=== PATIENT | female | born 1995 | race Caucasian/White ===

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

== ENCOUNTER 2017-01-11 14:41 | Inpatient (IN) | payer MEDICAID, OTHER ==
[~2017-01-11] VITALS: Ht 149.9 cm; Wt 59.5 kg
[~2017-01-11 14:41] MED LIST changes: -ACET500C5 PO; -CEPH-443 PO; -NITR100C73 PO
[2017-01-11 15:04] VITALS: BP 137/84; PULSE 58; RESP 18; Ht 149.9 cm; Wt 59.5 kg
[2017-01-11] MEDS ORDERED: LACTATED RINGER'S 1,000 ML IV SCH (15:26)
[2017-01-11] MEDS ORDERED: AMPICILLIN 2 GM/NS (PMX) 100 ML IV ONE (15:30)
[2017-01-11] MEDS ORDERED: CARBOPROST 250 MCG INJ IM PRN (15:30)
[2017-01-11] MEDS ORDERED: OXYTOCIN 30 UNITS/LR 500 ML IV SCH ×2 (15:30)
[2017-01-11] MEDS ORDERED: LACTATED RINGER'S 1,000 ML IV PRN (15:30)
[2017-01-11] MEDS ORDERED: IBUPROFEN 600 MG TAB PO PRN (15:30)
[2017-01-11] MEDS ORDERED: MISOPROSTOL 200 MCG TAB PR PRN (15:30)
[2017-01-11] MEDS ORDERED: METHYLERGONOVINE 0.2 MG INJ IM PRN (15:30)
[2017-01-11] MEDS ORDERED: OXYTOCIN 30 UNITS/LR 500 ML IV PRN (15:30)
[2017-01-11] MEDS ORDERED: BUTORPHANOL 2 MG INJ IV PRN (15:30)
[2017-01-11] MEDS ORDERED: LIDOCAINE 1% (MPF) 30 ML INJ INJ PRN (15:30)
--- NOTE | 2017-01-11 16:01 | RADRPT ---
PROCEDURE: US OB. CLINICAL INDICATION: Size and dates TECHNIQUE: Multiple sonographic images of the pelvis and gravid uterus were obtained. The images were reviewed on a PACS workstation. COMPARISON: No prior studies are available for comparison. FINDINGS: There is a single viable intrauterine gestation. Cardiac activity is present with 136 beats per min stephen. There is a vertex presentation. The placenta is anterior. There is no evidence for an abruption or placenta previa. Measurements were made in order to determine age. The results are as follows: Head measurements were not obtained. AC =33.7 cm FL =7.4 cm Estimated gestational age of approximately 37 weeks and 6 days based on ultrasound measurements. Clinical age: 38 weeks and 1 day. The estimated date of delivery is 01/26/17, based on ultrasound measurements. The EFW = 3339 g, 57%, based on LMP age. RPTAT: AA IMPRESSION: Single viable intrauterine gestation of approximately 37 weeks and 6 days based on ultrasound measu rements. .Nilesh Dick MD, MD Date Time Electronically viewed and signed by .Nilesh Dick MD, on 01/11/2017 16:00 .S/
[2017-01-11 16:11] LABS: BASOPHILS % 0.5 % (0.0-2.0); EOSINOPHILS # 0.1 10^3/ul (0.0-0.5); EOSINOPHILS % 1.5 % (0.0-7.0); HEMATOCRIT 33.5 % (37.0-47.0); HEMOGLOBIN 10.6 g/dl (12.0-16.0); LYMPHOCYTES # 2.5 10^3/ul (0.8-2.9); MEAN CORPUSCULAR HEMOGLOBIN 26.8 pg (29.0-33.0); MEAN CORPUSCULAR HGB CONC 31.6 g/dl (32.0-37.0); MEAN CORPUSCULAR VOLUME 84.6 fl (72.0-104.0); MEAN PLATELET VOLUME 12.7 fl (7.4-10.4); MONOCYTE # 0.6 10^3/ul (0.3-0.9); NEUTROPHIL # 5.1 10^3/ul (1.6-7.5); NEUTROPHILS % 60.8 % (30.0-74.0); NUCLEATED RED BLOOD CELLS% 0.2 /100WBC (0.0-0.0); PLATELET COUNT 215 10^3/UL (140-415); RED BLOOD COUNT 3.96 10^6/ul (4.20-5.40); RED CELL DISTRIBUTION WIDTH 13.8 % (11.5-14.5); WHITE BLOOD COUNT 8.5 10^3/ul (4.8-10.8)
[2017-01-11 16:24] LABS: INR 0.84; PROTIME 11.5 Sec (12.2-14.2); PT RATIO 0.9
[2017-01-11 16:25] LABS: PARTIAL THROMBOPLASTIN TIME 26.7 Sec (25.0-35.0)
[2017-01-11] MEDS ORDERED: FENTAnyl 2MCG/ML-ROPIV 0.2% 100 ML ONE (16:34)
[2017-01-11] MEDS ORDERED: NALOXONE (0.4 MG/ML) INJ IV PRN ×2 (19:30)
[2017-01-11] MEDS ORDERED: FENTAnyl 2MCG/ML-ROPIV 0.2% 100 ML BAG EPI SCH (19:30)
[2017-01-11] MEDS ORDERED: AMPICILLIN 1 GM/NS (PMX) 50 ML IV SCH (19:30)
[2017-01-11] MEDS ORDERED: ACETAMINOPHEN 325 MG TAB PO PRN (20:30)
--- NOTE | 2017-01-11 20:37 | HP ---
Date/Time of Note Date/Time of Note DATE: 01/11/17 TIME: 20:35 OB - History Hx of Present Chief Complaint: contractions Estimated Due Date: Jan 23, 2017 : 2 Para: 1 Spontaneous : 0 Therapeutic : 0 Care: Good Care Ultrasounds: Normal mid trimester US Obstetrical Complications: None Medical Complications: None Past Family/Social History * Past Medical, Surgical, Family and Obstetric Histories reviewed from chart. GBS Status: Negative OB Admission Exam Vital Signs Vital Signs Vital Signs Date Time Temp Pulse Resp B/P Pulse Ox O2 Delivery O2 Flow Rate FiO2 01/11/17 15:04 98.4 58 18 137/84 Room Air Physical Exam HEENT: WNL Heart: Rhythm Normal Lungs: Clear, Equal Abdomen: WNL Extremities: Normal Reflexes: Normal Cervical Dilatation: 8cm Effacement: 75% Station: -1 Membranes: Intact Heart Rate: 130's Accelerations: Accelerations Present Decelerations: No Decelerations Varibility: Moderate Last 72 hours Lab Results CBC & BMP 01/11/17 15:30 OB Assessment/Plan Reason for admission: active labor Plan: Expectant Management BARBRA PHILIPPE MD Jan 11, 2017 20:37
--- NOTE | 2017-01-11 20:39 | LDN ---
Date/Time of Note Date/Time of Note DATE: 01/11/17 TIME: 20:37 Delivery Summary Weeks of Gestation 38 weeks Placenta Delivered: Spontaneously Meconium: none Episiotomy: No Perineal laceration: 1 Laceration repair: First degree laceration repaired with 3-0 chromic. Anesthesia type: Epidural Estimated blood loss: 200 Sponge & Needle done & correct: Yes All needle counts correct: Yes Any foreign bodies felt in the: No Problems: Infant Delivery Information Sex Sex: male Apgars 1 Minute: 8 5 Minute: 9 Suctioning Nose & mouth suctioned at rubi: Yes Delee suction performed: No Umbilical Cord Cord presentations: no nuchal cord Cord Blood was obtained: Yes Mother & Baby Disposition Disposition Mom & Baby to Maternity; Good: Yes BARBRA PHILIPPE MD Jan 11, 2017 20:39
[2017-01-11 21:29] LABS: BASOPHILS % 0.4 % (0.0-2.0); EOSINOPHILS % 0.2 % (0.0-7.0); HEMATOCRIT 32.9 % (37.0-47.0); HEMOGLOBIN 10.5 g/dl (12.0-16.0); LYMPHOCYTES # 1.5 10^3/ul (0.8-2.9); LYMPHOCYTES % 13.8 % (18.0-55.0); MEAN CORPUSCULAR HEMOGLOBIN 26.9 pg (29.0-33.0); MEAN CORPUSCULAR HGB CONC 31.9 g/dl (32.0-37.0); MEAN CORPUSCULAR VOLUME 84.4 fl (72.0-104.0); MEAN PLATELET VOLUME 12.5 fl (7.4-10.4); MONOCYTE # 0.4 10^3/ul (0.3-0.9); NEUTROPHILS % 80.9 % (30.0-74.0); PLATELET COUNT 200 10^3/UL (140-415); RED CELL DISTRIBUTION WIDTH 13.9 % (11.5-14.5); WHITE BLOOD COUNT 11.1 10^3/ul (4.8-10.8)
[2017-01-11 22:10] LABS: ALBUMIN 3.5 g/dl (3.3-4.9); ALBUMIN/GLOBULIN RATIO 0.97; BILIRUBIN,INDIRECT 0.2 mg/dl (0-1.1); BILIRUBIN,TOTAL 0.2 mg/dl (0.2-1.3); CALCIUM 8.9 mg/dl (8.4-10.2); CREATININE 0.61 mg/dl (0.44-1.00); POTASSIUM 4.1 mmol/L (3.5-5.1); TOTAL PROTEIN 7.1 g/dl (6.1-8.1); URIC ACID 6.1 mg/dl (3.1-7.9)
[2017-01-11 22:13] LABS: ADD UMIC YES; UR ASCORBIC ACID NEGATIVE (NEGATIVE); UR BILIRUBIN (Dip) NEGATIVE (NEGATIVE); UR BLOOD (Dip) 2+ mg/dL (NEGATIVE); UR CLARITY CLEAR (CLEAR); UR COLOR YELLOW (YELLOW); UR GLUCOSE (Dip) NEGATIVE (NEGATIVE); UR KETONES (Dip) 1+ mg/dL (NEGATIVE); UR LEUKOCYTE ESTERASE (Dip) NEGATIVE Leu/ul (NEGATIVE); UR NITRITE (Dip) NEGATIVE (NEGATIVE); UR RBC 138 /HPF (0-5); UR SPECIFIC GRAVITY (Dip) 1.018 (1.003-1.030); UR TOTAL PROTEIN (Dip) 1+ mg/dl (NEGATIVE); UR UROBILINOGEN (Dip) NEGATIVE (NEGATIVE)
[2017-01-11] MEDS ORDERED: CA GLUCONATE (GM) 10% 10ML INJ IV PRN (22:30)
[2017-01-11] MEDS ORDERED: MAGNESIUM SULFATE 4 GM/100 ML 100 ML IV SCH (22:30)
[2017-01-11] MEDS: MAGNESIUM SULFATE 20 GM/500 ML 500 ML IV SCH (23:18)
[2017-01-11 23:30] VITALS: BP 141/80; PULSE 67; RESP 18
[2017-01-12] VITALS (18 sets, daily range): BP systolic 110–132; BP diastolic 58–84; PULSE 59–80; RESP 15–20
[2017-01-12] MEDS ORDERED: ACETAMINOPHEN 325 MG TAB PO PRN (00:30)
[2017-01-12] MEDS ORDERED: OXYTOCIN 30 UNITS/LR 500 ML IV PRN (00:30)
[2017-01-12] MEDS ORDERED: CARBOPROST 250 MCG INJ IM PRN (00:30)
[2017-01-12] MEDS ORDERED: HYDROCODONE/APAP (5/325) TAB PO PRN (00:30)
[2017-01-12] MEDS ORDERED: LANOLIN 7 GM TUBE TOP PRN (00:30)
[2017-01-12] MEDS ORDERED: DIBUCAINE 1% 30 GM OINT PR PRN (00:30)
[2017-01-12] MEDS ORDERED: MISOPROSTOL 200 MCG TAB PR PRN (00:30)
[2017-01-12] MEDS ORDERED: WITCH HAZEL/GLYCERIN PAD PR PRN (00:30)
[2017-01-12] MEDS ORDERED: BENZOCAINE 20% 56 ML SPRAY TOP PRN (00:30)
[2017-01-12] MEDS: IBUPROFEN 600 MG TAB PO SCH ×4 (00:51→18:00)
[2017-01-12] MEDS: LACTATED RINGER'S 1,000 ML IV* SCH ×3 (01:17→12:51)
[2017-01-12 07:20] LABS: BASOPHIL # 0.1 10^3/ul (0.0-0.1); BASOPHILS % 0.6 % (0.0-2.0); EOSINOPHILS # 0.1 10^3/ul (0.0-0.5); EOSINOPHILS % 0.7 % (0.0-7.0); HEMATOCRIT 30.7 % (37.0-47.0); HEMOGLOBIN 9.8 g/dl (12.0-16.0); MEAN CORPUSCULAR HGB CONC 31.9 g/dl (32.0-37.0); MEAN CORPUSCULAR VOLUME 84.6 fl (72.0-104.0); MONOCYTE # 0.9 10^3/ul (0.3-0.9); MONOCYTES % 7.5 % (0.0-13.0); NEUTROPHIL # 9.4 10^3/ul (1.6-7.5); NEUTROPHILS % 74.4 % (30.0-74.0); PLATELET COUNT 192 10^3/UL (140-415); RED BLOOD COUNT 3.63 10^6/ul (4.20-5.40); RED CELL DISTRIBUTION WIDTH 14.2 % (11.5-14.5); WHITE BLOOD COUNT 12.6 10^3/ul (4.8-10.8)
[2017-01-12] MEDS: SENNA/DOCUSATE NA (8.6MG/50MG) TAB PO SCH ×2 (09:00→20:54)
[2017-01-12] MEDS: MAGNESIUM SULFATE 20 GM/500 ML 500 ML IV SCH (09:51)
[2017-01-13] MEDS: IBUPROFEN 600 MG TAB PO SCH ×3 (00:06→12:07)
[2017-01-13] MEDS: MAGNESIUM SULFATE 20 GM/500 ML 500 ML IV SCH (00:10)
[2017-01-13 00:11] VITALS: BP 124/71; PULSE 55
[2017-01-13] MEDS: LACTATED RINGER'S 1,000 ML IV* SCH (00:19)
[2017-01-13 04:25] VITALS: BP 108/70; PULSE 56; RESP 18
[2017-01-13 08:00] VITALS: BP 128/90; PULSE 67; RESP 17
[2017-01-13] MEDS ORDERED: DIPHTH/TET/ACEL PERTUSS (ADULT) 0.5 ML VIAL IM* ONE (09:00)
[2017-01-13] MEDS: SENNA/DOCUSATE NA (8.6MG/50MG) TAB PO SCH (09:10)
--- NOTE | 2017-01-14 06:28 | PREOPHP ---
DATE OF ADMISSION: 01/11/2017 HISTORY OF PRESENT ILLNESS: This is a 21-year-old lady, 2, para 1, EDC January 21, 2017, at 38 and 4/7 weeks, admitted in labor. She had care in my [place] office and the care was uneventful. PAST MEDICAL HISTORY: No history of diabetes, TB, asthma. ALLERGIES: NONE. SOCIAL HISTORY: The patient does not smoke. She does not drink. She does not take any drugs except her iron and vitamins. GYNECOLOGIC HISTORY: She had menarche at the age of 14, every 28 days interval, 3-4 days' duration and moderate in amount. FAMILY HISTORY: Noncontributory. OBSTETRIC HISTORY: She is 2, para 1. Her first delivery was in 2016, normal delivery. REVIEW OF SYSTEMS: CARDIOVASCULAR: No chest pain. LUNGS: No cough. GASTROINTESTINAL: No diarrhea, no vomiting. GENITOURINARY: No dysuria. PHYSICAL EXAMINATION: GENERAL: Reveals a conscious, coherent lady, and not in acute distress. VITAL SIGNS: Blood pressure 120/80, pulse rate 80 per minute, respirations 16 per minute. BREASTS, HEART AND LUNGS: Within normal limits. ABDOMEN: Soft. Fundic height 35 cm. heart tones 140 per minute. PELVIC: Exam done by nurse revealed the cervix to be 4 cm dilated, 100 percent effaced, station 0, in cephalic presentation with the bag of water intact. EXTREMITIES: No pedal edema. ADMITTING DIAGNOSIS: Thirty-eight and 4/7 weeks' intrauterine in labor. The patient was planned to be observed for progress of labor and to be given Pitocin augmentation if contractions are spaced out. Further care was endorsed to Dr. Hoang and for delivery as well. Dictated By: Leigha Medina MD /mark/kasia /Document#: [id number]
--- NOTE | 2017-01-17 06:41 | PN ---
DATE: 01/12/2017 Date of progress note 01/12/2017 at 9 a.m. SUBJECTIVE DATA: The patient feels good. Good urine output and good gas per rectum. Complaining of mild perineal discomfort. OBJECTIVE: VITAL SIGNS: She is afebrile. Vital signs stable. BREASTS: Not engorged. ABDOMEN: Soft. Uterus firm below the umbilicus. Lochia normal. EXTREMITIES: No calf tenderness. ASSESSMENT: day 1. PLAN: Home tomorrow. To clinic in two weeks. Advised to continue with iron and vitamins. She was counseled. She was instructed. FINAL DIAGNOSIS: Term , delivered. Dictated By: Leigha Medina MD /mark/ada /Document#: [id number] ; [place] [facility]
== END 2017-01-13 14:30 | disposition home or self-care (01) | DRG 775 ==
LOC: L-D 14:41 → OBT 14:41 → L-D 15:30 → PP1 23:29
PROVIDERS: ADMIT Obstetrics & Gynecology; ATTEND Obstetrics & Gynecology
PROC: 10E0XZZ Delivery of Products of Conception, External Approach (ICD-10-PCS; principal; 2017-01-11)
PROC: 0HQ9XZZ Repair Perineum Skin, External Approach (ICD-10-PCS; 2017-01-11)
DX: O70.0 First degree perineal laceration during delivery (principal); Z37.0 Single live birth; Z3A.38 38 weeks gestation of pregnancy
CPT/HCPCS: 62319; 76815; 80053; 81001; 83735; 84560; 85025; 85610; 85730; 86592; 86900; 86901; 87340; 90715; G0463; J2590; J3010; J3475; J7120

== ENCOUNTER 2017-06-15 19:34 | Emergency (ER) | END 2017-06-15 21:43 | disposition home or self-care (01) ==

== ENCOUNTER 2018-07-28 13:49 | Emergency (ER) | payer OTHER ==
[~2018-07-28] VITALS: Ht 149.9 cm; Wt 47.7 kg
[~2018-07-28 13:49] MED LIST changes: +ACET500C5 PO; +AMOX500C2 PO; -NITR-58 PO
[2018-07-28 14:00] VITALS: BP 118/75; PULSE 86; RESP 18
[2018-07-28] MEDS: KETOROLAC 30 MG INJ IM STA ×2 (14:27→14:30)
[2018-07-28 14:32] VITALS: Ht 149.9 cm; Wt 47.7 kg
[2018-07-28] MEDS ORDERED: IBUP-1561 PO (14:53)
--- NOTE | 2018-07-28 14:58 | ERD ---
ER Documentation Chief Complaint Chief Complaint MECHANICAL FALL LOWER BACK PAIN HPI Patient is a 22-year-old female, presents the ER for concerns of lower back pain. Patient states she was playing with her sister yesterday. Patient states her sister was pulling her when her sister let go and she fell backwards. Patient landed on her buttocks. Patient states she has pain in her lower back. Patient denies any signs of urinary incontinence or stool incontinence. Patient denies any pain down her legs. Patient denies any unilateral weakness, fevers, chills, nausea, vomiting, flank pain or hematuria. Patient is able to ambulate without any difficulty. ROS All systems reviewed and are negative except as per history of present illness. Medications Home Meds Active Scripts Ibuprofen* (Motrin*) 400 Mg Tab, 400 MG PO Q6, #30 TAB Prov:RENNY GARRISON PA-C 07/28/18 Acetaminophen* (Tylophen*) 500 Mg Capsule, 1 CAP PO Q6H PRN for PAIN AND OR ELEVATED TEMP, #20 CAP Prov:LOIDA FABIAN PA-C 06/15/17 Amoxicillin* (Amoxicillin*) 500 Mg Cap, 500 MG PO TID for 7 Days, CAP Prov:LOIDA FABIAN PA-C 06/15/17 Vit #108/Iron/Fa ( ONE TABLET) 1 Each Tablet, 1 EACH PO DAILY for 30 Days Prov:MARICRUZ SIMONS 08/24/14 Allergies Allergies: Coded Allergies: No Known Allergy (Unverified , 09/16/16) PMhx/Soc Medical and Surgical Hx: pt denies Medical Hx, pt denies Surgical Hx Hx Alcohol Use: No Hx Substance Use: No Hx Tobacco Use: No FmHx Family History: No diabetes Physical Exam Vitals Vital Signs Date Temp Pulse Resp B/P (MAP) Pulse Ox O2 O2 Flow FiO2 Time Delivery Rate 07/28/18 98.0 86 18 118/75 99 14:00 (89) Physical Exam GENERAL: Well-developed, well-nourished female. Appears in no acute distress. HEAD: Normocephalic, atraumatic. EYES: Pupils are equally reactive bilaterally. EOMs grossly intact. No conjunctival erythema. ENT: Moist mucous membranes. No uvula deviation. No kissing tonsils. NECK: Supple. No meningismus. Normal range of motion of the neck. LUNG: Clear to auscultation bilaterally. No rhonchi, wheezing, rales or coarse breath sounds. HEART: Regular rate and rhythm. No murmurs, rubs or gallops. BACK: Tender to palpation of the lumbar spine And bilateral paraspinal muscles. EXTREMITIES: Equal pulses bilaterally. No peripheral clubbing, cyanosis or edema. No unilateral leg swelling. NEUROLOGIC: Alert and oriented. Moving all four extremities without any difficulty. Normal speech. Steady gait. SKIN: Normal color. Warm and dry. No rashes or lesions. Results 24 hrs Laboratory Tests Test 07/28/18 14:23 POC Beta HCG, Qualitative NEGATIVE Current Medications Medications Dose Sig/Lennie Start Time Status Last (Trade) Ordered Route PRN Stop Time Admin Dose Reason Admin Ketorolac 30 mg ONCE STAT 07/28/18 DC Tromethamine IM 14:17 07/28/18 (Toradol) 14:32 Ibuprofen 400 mg ONCE ONCE 07/28/18 07/28/18 (Motrin) PO 15:00 07/28/18 14:38 15:01 Procedures/MDM ED COURSE: The patient was stable throughout ED course. I kept the patient and/or family informed of laboratory and diagnostic imaging results throughout the ED course. DIAGNOSTIC IMAGING: Read by radiologist. Patient: GALLO MCKEON : 1995 Age: 22 Sex: F MR #: [id number] DOS: 07/28/18 1417 Ordering MD: RENNY GARRISON PA-C Location: [facility] Room/Bed: PROCEDURE: XR Lumbar Spine. CLINICAL INDICATION: Low back pain. TECHNIQUE: Three views of the lumbar spine are available for review COMPARISON: None available FINDINGS: There is maintenance of normal lumbar lordosis. Alignment is intact. No acute fracture or dislocation is seen. The vertebral body heights and disc spaces are preserved. IMPRESSION: 1. No acute fracture or subluxation. RPTAT: HFN .David Victor MD, Date Time Electronically viewed and signed by .David Victor MD, on 07/28/2018 14:46 .N/ CC: RENNY GARRISON PA-C PROCEDURES: None. MEDICATIONS GIVEN: Ibuprofen MEDICAL DECISION MAKING: This is a 22-year-old female presents ER for concerns of lower back pain after fall injury yesterday. Vital signs were reviewed. Patient was afebrile. Patient denied any saddle anesthesia, urinary incontinence, bowel incontinence, night pain or recent trauma. XR imaging was unremarkable. See formal report above. At this time, patient's presentation was consistent with musculoskeletal back pain. Low suspicion for cauda equine syndrome, spinal fractures, epidural abscess, spinal metastases, osteomyelitis, aortic dissection, ruptured or leaking AA, DJD, sciatica, muscle spasm, pyelonephritis or nephrolithiasis. Patient was nontoxic, [id number] prior to discharge. PRESCRIPTIONS: Ibuprofen DISCHARGE: At this time, patient is stable for discharge and outpatient management. RICE therapy and ROM exercises were advised to avoid stiffness. I have instructed the patient to follow-up with his/her primary care physician in 1-2 days. I have discussed with the patient the possibility of needing to see an inventory control specialist for further workup and imaging if the pain persists. I have instructed the patient to promptly return to the ER for any new or worsening symptoms including increased pain, swelling, warmth, urinary incontinence, stool incontinence, weakness or numbness. The patient and/or family expressed understanding of and agreement with this plan. All questions were answered. Home care instructions were provided. Disclaimer: Inadvertent spelling and grammatical errors are likely due to EHR/dictation software use and do not reflect on the overall quality of patient care. Also, please note that the electronic time recorded on this note does not necessarily reflect the actual time of the patient encounter. Departure Diagnosis: Primary Impression: Lower back pain Chronicity: unspecified Back pain laterality: unspecified Sciatica presence: unspecified whether sciatica present Qualified Codes: M54.5 - Low back pain Patient Instructions: Back Pain (Acute Or Chronic) Referrals: COMM[facility]ITY CLIN[facility] YOU HAVE RECEIVED A MEDICAL SCREENING EXAM AND THE RESULTS INDICATE THAT YOU DO NOT HAVE A CONDITION THAT REQUIRES URGENT TREATMENT IN THE EMERGENCY DEPARTMENT. FURTHER EVALUATION AND TREATMENT OF YOUR CONDITION CAN WAIT UNTIL YOU ARE SEEN IN YOUR DOCTORS OFFICE WITHIN THE NEXT 1-2 DAYS. IT IS YOUR RESPONSIBILITY TO MAKE AN APPOINTMENT FOR FOLOW-UP CARE. IF YOU HAVE A PRIMARY DOCTOR --you should call your primary doctor and schedule an appointment IF YOU DO NOT HAVE A PRIMARY DOCTOR YOU CAN CALL OUR PHYSICIAN REFERRAL HOTLINE AT IF YOU CAN NOT AFFORD TO SEE A PHYSICIAN YOU CAN CHOSE FROM THE FOLLOWING [facility] [address] [facility] [address] [facility] [address] [facility] [address] [facility] [address] [facility]. [facility] [address] [facility]. [facility] YOU HAVE RECEIVED A MEDICAL SCREENING EXAM AND THE RESULTS INDICATE THAT YOU DO NOT HAVE A CONDITION THAT REQUIRES URGENT TREATMENT IN THE EMERGENCY DEPARTMENT. FURTHER EVALUATION AND TREATMENT OF YOUR CONDITION CAN WAIT UNTIL YOU ARE SEEN IN YOUR DOCTORS OFFICE WITHIN THE NEXT 1-2 DAYS. IT IS YOUR RESPONSIBILITY TO MAKE AN APPOINTMENT FOR FOLOW-UP CARE. IF YOU HAVE A PRIMARY DOCTOR --you should call your primary doctor and schedule and appointment IF YOU DO NOT HAVE A PRIMARY DOCTOR YOU CAN CALL OUR PHYSICIAN REFERRAL HOTLINE AT . IF YOU CAN NOT AFFORD TO SEE A PHYSICIAN YOU CAN CHOSE FROM THE FOLLOWING [facility]: [facility] [address] [place] [address] [facility] [address] [place] [address] [facility] [address] [place] [address] Additional Instructions: Call your primary care doctor TOMORROW for an appointment during the next 1-2 days.See the doctor sooner or return here if your condition worsens before your appointment time. RENNY GARRISON PA-C Jul 28, 2018 14:58
[2018-07-28] MEDS ORDERED: IBUPROFEN 200 MG TAB PO ONE (15:00)
== END 2018-07-28 14:59 | disposition home or self-care (01) ==
LOC: FTE 13:49
DX: M54.5 Low back pain (principal)
CPT/HCPCS: 72100; 81025; J1885; Z7502; Z7610